=== PATIENT | female | born 1995 | race Caucasian/White ===

== ENCOUNTER 2017-04-19 20:00 | Inpatient (IN) | payer BC ==
[~2017-04-19] VITALS: Ht 160 cm; Wt 89.8 kg
[2017-04-19 20:49] VITALS: Ht 160 cm; Wt 89.8 kg
[2017-04-19] MEDS ORDERED: MISOPROSTOL 200 MCG TAB PR PRN (21:00)
[2017-04-19] MEDS ORDERED: LIDOCAINE 1% (MPF) 30 ML INJ INJ PRN (21:00)
[2017-04-19] MEDS ORDERED: IBUPROFEN 600 MG TAB PO PRN (21:00)
[2017-04-19] MEDS ORDERED: METHYLERGONOVINE 0.2 MG INJ IM PRN (21:00)
[2017-04-19] MEDS ORDERED: OXYTOCIN 30 UNITS/LR 500 ML IV PRN (21:00)
[2017-04-19] MEDS ORDERED: BUTORPHANOL 2 MG INJ IV PRN (21:00)
[2017-04-19] MEDS ORDERED: CARBOPROST 250 MCG INJ IM PRN (21:00)
[2017-04-19] MEDS ORDERED: OXYCODONE/ASPIRIN (4.88/325) TAB PO PRN (21:00)
[2017-04-19] MEDS ORDERED: OXYTOCIN 30 UNITS/LR 500 ML IV SCH (21:00)
[2017-04-19] MEDS ORDERED: MINERAL OIL LIGHT 10 ML VIAL TOP PRN (21:00)
[2017-04-19] MEDS: LACTATED RINGER'S 1,000 ML IV SCH (21:15)
[2017-04-19 21:25] LABS: BASOPHILS % 0.4 % (0.0-2.0); EOSINOPHILS # 0.1 10^3/ul (0.0-0.5); EOSINOPHILS % 1.2 % (0.0-7.0); HEMATOCRIT 33.6 % (37.0-47.0); HEMOGLOBIN 11.4 g/dl (12.0-16.0); LYMPHOCYTES # 2.4 10^3/ul (0.8-2.9); LYMPHOCYTES % 23.4 % (18.0-55.0); MEAN CORPUSCULAR HEMOGLOBIN 28.9 pg (29.0-33.0); MEAN CORPUSCULAR HGB CONC 33.9 g/dl (32.0-37.0); MEAN CORPUSCULAR VOLUME 85.3 fl (72.0-104.0); MEAN PLATELET VOLUME 10.9 fl (7.4-10.4); MONOCYTE # 0.8 10^3/ul (0.3-0.9); MONOCYTES % 7.9 % (0.0-13.0); NEUTROPHIL # 6.6 10^3/ul (1.6-7.5); NEUTROPHILS % 65.7 % (30.0-74.0); PLATELET COUNT 225 10^3/UL (140-415); RED BLOOD COUNT 3.94 10^6/ul (4.20-5.40); RED CELL DISTRIBUTION WIDTH 13.6 % (11.5-14.5); WHITE BLOOD COUNT 10.1 10^3/ul (4.8-10.8)
[2017-04-19 21:47] LABS: INR 0.9; PROTIME 12.2 Sec (11.9-14.9)
[2017-04-19 21:48] LABS: PARTIAL THROMBOPLASTIN TIME 25.4 Sec (25.0-35.0)
[2017-04-19 22:09] VITALS: BP 133/71; PULSE 133; RESP 17
[2017-04-19] MEDS ORDERED: DINOPROSTONE 10 MG VAG SUPP VAG ONE (22:30)
[2017-04-19] MEDS ORDERED: IRON1TAB78 PO (23:22)
[2017-04-19] MEDS ORDERED: PREN-93 PO (23:22)
[2017-04-20] MEDS: BUTORPHANOL 2 MG INJ IV PRN ×2 (02:05→15:35)
[2017-04-20] MEDS: LACTATED RINGER'S 1,000 ML IV SCH ×2 (02:30→11:29)
[2017-04-20] MEDS ORDERED: OXYTOCIN 30 UNITS/LR 500 ML IV SCH (16:30)
[2017-04-20] MEDS: OXYTOCIN 30 UNITS/LR 500 ML IV SCH ×2 (17:48→22:26)
--- NOTE | 2017-04-20 18:06 | HP ---
Date/Time of Note Date/Time of Note DATE: 04/20/17 TIME: 18:03 OB - History Hx of Present Free Text/Dictation 21y.o primigravida here for induction at 39w6d. VE /-3 cervidil induction course was unevenful Chief Complaint: for induction Estimated Due Date: Apr 20, 2017 : 1 Para: 0 Spontaneous : 0 Therapeutic : 0 Care: Good Care Ultrasounds: Normal mid trimester US Obstetrical Complications: None Medical Complications: None Past Family/Social History * Past Medical, Surgical, Family and Obstetric Histories reviewed from chart. Blood Type: B+ Rubella: immune RPR/VDRL: Negative GBS Status: Negative HBsAG: Negative OB Admission Exam Vital Signs Vital Signs Vital Signs Date Time Temp Pulse Resp B/P Pulse Ox O2 Delivery O2 Flow Rate FiO2 04/19/17 22:09 98.3 133 17 133/71 Room Air Physical Exam HEENT: WNL Heart: Rhythm Normal Lungs: Clear, Equal Abdomen: WNL Extremities: Normal Reflexes: Normal Cervical Dilatation: 1cm Effacement: 50% Station: -3 Membranes: Intact Amniotic Fluid: Unevaluable Heart Rate: 140's Accelerations: Accelerations Present Decelerations: No Decelerations Varibility: Moderate Contractions on Admission: 6-10 Minutes Apart Intensity: Mild Last 72 hours Lab Results CBC & BMP 04/19/17 21:10 OB Assessment/Plan Reason for admission: induction of labor Other Assessment: IUP 39w6d Plan: Induction Induction Method: per Misoprostol Protocol VIVIANA MAHAN MD Apr 20, 2017 18:06
--- NOTE | 2017-04-20 18:11 | LDN ---
Date/Time of Note Date/Time of Note DATE: 04/20/17 TIME: 18:07 Delivery Summary Weeks of Gestation 40w Placenta Delivered: Spontaneously Meconium: none Episiotomy: No Perineal laceration: 0 Laceration repair: cervical laceration 0ch Anesthesia type: None Estimated blood loss: 300 Sponge & Needle done & correct: Yes All needle counts correct: Yes Any foreign bodies felt in the: No Problems: Delivery Information Sex Infant Sex: female Apgars 1 Minute: 9 5 Minute: 9 10 Minute: 0 Suctioning Nose & mouth suctioned at ujan: Yes Delee suction performed: No Umbilical Cord Umbilical cord with: 3 Vessels Cord presentations: no nuchal cord Cord Blood was obtained: Yes Mother & Baby Disposition Disposition Mom & Baby to Maternity; Good: Yes Mom transferred to: Other Baby to NICU: No () VIVIANA MAHAN MD Apr 20, 2017 18:11
--- NOTE | 2017-04-20 18:41 | DELSUM ---
Delivery Summary A-C Datetime Report Generated by CPN: 04/20/2017 18:41 DELIVERY PERSONNEL Energy Control Officer: Kirsten Gonzalez MATERNAL INFORMATION Delivery Anesthesia: None Medications in Delivery: oxytocin 30units/lr Estimated Blood Loss (ml): 300 Placenta Cultured: No Maternal Complications: None LABOR SUMMARY EDC: 04/20/2017 00:00 No. Babies in Womb: 1 Attempted: No Labor Anesthesia: IV Sedation LABOR INFORMATION Reason for Induction: Other Reason for Induction- Other: TERM INDUCTION Onset of Labor: 04/20/2017 11:39 Complete Dilatation: 04/20/2017 16:30 Cervical Ripening Agents: Cervidil (Annotations: IN PLACE-PLACED 04/19 @ 2312) Cervical Ripening Agents: Cervidil Oxytocin: N/A Group B Beta Strep: Negative Antibiotics # of Doses: 0 Steroids Given: None Reason Steroids Not Administered: Not Applicable MEMBRANES Membranes Rupture Method: Spontaneous Rupture of Membranes: 04/20/2017 14:54 Length of Rupture (hr): 1.70 Amniotic Fluid Color: Clear Amniotic Fluid Color: Clear Amniotic Fluid Amount: Moderate Amniotic Fluid Amount: Moderate Amniotic Fluid Odor: None Amniotic Fluid Odor: None STAGES OF LABOR Stage 1 hr: 4 Stage 1 min: 51 Stage 2 hr: 0 Stage 2 min: 6 Stage 3 hr: 0 Stage 3 min: 9 Total Time in Labor hr: 5 Total Time in Labor min: 6 VAGINAL DELIVERY Episiotomy: None Laceration Type: Cervical Laceration Repair: Yes Initial Vag Sponge Count: 10 Final Vag Sponge Count: 10 Initial Vag Sharps Count: 2 Final Vag Sharps Count: 2 Sponge Count Correct: Yes; Vaginal Sweep Performed Sharps Count Correct: Yes BABY A INFORMATION Delivery Date/Time: 04/20/2017 16:36 Method of Delivery: Vaginal Born in Route : No : N/A Forceps: N/A Vacuum Extraction: N/A Shoulder Dystocia : No SHOULDER DYSTOCIA BABY A Infant Delivery Date/Time: 04/20/2017 16:36 PRESENTATION/POSITION BABY A Presentation: Cephalic Presentation: Cephalic Cephalic Presentation: Vertex Vertex Position: Left Occipital Anterior Breech Presentation: N/A PLACENTA INFORMATION BABY A Placenta Delivery Time : 04/20/2017 16:45 Placenta Method of Delivery: Spontaneous Placenta Status: Delivered SCORES BABY A Heart Rate 1 min: >100 bpm Resp Effort 1 min: Good Cry Reflex Irritability 1 min: Cough/Sneeze/Pulls Away Muscle Tone 1 min: Active Motion Color 1 min: Body [place], Extremit Blue Resuscitation Effort 1 min: Tactile Stimulation SCORE 1 MIN: 9 Heart Rate 5 min: >100 bpm Resp Effort 5 min: Good Cry Reflex Irritability 5 min: Cough/Sneeze/Pulls Away Muscle Tone 5 min: Active Motion Color 5 min: Body [place], Extremit Blue Resuscitation Effort 5 min: Tactile Stimulation SCORE 5 MIN: 9 INFANT INFORMATION BABY A Gestational Age at Delivery: 40.0 Gestational Status: Full Term- 39- 40.6 Weeks Outcome : Liveborn Condition : Stable Sex: Female IDENTIFICATION/MEDS BABY A ID Band Number: [id number] ID Band Location: Right Leg; Left Arm Sensor Applied: Yes Sensor Number: [id number] Sensor Location : Cord Clamp Vitamin K Given : Not Given Erythromycin Given: Not Given WEIGHT/LENGTH BABY A Infant Birthweight (gm): 3335 Infant Weight (lb): 7 Infant Weight (oz): 6 Length (in): 18.50 Infant Length (cm): 46.99 CORD INFORMATION BABY A No. Cord Vessels: 3 Nuchal Cord : Around Neck x1, Loose Cord Blood Taken: Yes Infant Suction: Mouth; Nose ASSESSMENT BABY A Infant Complications: Other Complications- Other: L FOOT turned inwards Physical Findings at Delivery: Within Normal Limits Respirations: Appears Normal Mold Holder/ALS Called : No Infant Care By: Raoul OVALLES Transferred To: Remains with Mother
[2017-04-20 19:30] VITALS: BP 106/66; PULSE 74; RESP 18
[2017-04-20 20:35] VITALS: BP 110/68; PULSE 60; RESP 20
[2017-04-20] MEDS ORDERED: ZOLPIDEM 5 MG TAB PO PRN (21:30)
[2017-04-20] MEDS ORDERED: LANOLIN 7 GM TUBE TOP PRN (21:30)
[2017-04-20] MEDS ORDERED: CARBOPROST 250 MCG INJ IM PRN (21:30)
[2017-04-20] MEDS ORDERED: BENZOCAINE 20% 56 ML SPRAY TOP PRN (21:30)
[2017-04-20] MEDS ORDERED: MISOPROSTOL 200 MCG TAB PR PRN (21:30)
[2017-04-20] MEDS ORDERED: OXYTOCIN 30 UNITS/LR 500 ML IV PRN (21:30)
[2017-04-20] MEDS ORDERED: WITCH HAZEL/GLYCERIN PAD PR PRN (21:30)
[2017-04-20] MEDS ORDERED: METHYLERGONOVINE 0.2 MG INJ IM PRN (21:30)
[2017-04-20] MEDS ORDERED: OXYCODONE/ASPIRIN (4.88/325) TAB PO PRN ×2 (21:30)
[2017-04-21] VITALS: BP 108/69; PULSE 64; RESP 18
[2017-04-21] MEDS: IBUPROFEN 600 MG TAB PO SCH ×4 (00:17→17:49)
--- NOTE | 2017-04-21 01:37 | PN ---
Date/Time of Note Date/Time of Note DATE: 04/21/17 TIME: 01:36 OB Subjective Subjective Subjective no c/o OB Objective Objective Objective vss afebrile fundus firm lochia min calf neg for tenderness OB Assessment/Plan Other Assessment: stable Other plan: d/s home in am VIVIANA MAHAN MD Apr 21, 2017 01:37
[2017-04-21 04:15] VITALS: BP 104/64; PULSE 96; RESP 18
[2017-04-21 08:20] VITALS: BP 112/64; PULSE 89; RESP 16
[2017-04-21] MEDS: SENNA/DOCUSATE NA (8.6MG/50MG) TAB PO SCH ×2 (08:43→21:02)
[2017-04-21 11:31] LABS: BASOPHILS % 0.3 % (0.0-2.0); EOSINOPHILS # 0.1 10^3/ul (0.0-0.5); EOSINOPHILS % 0.4 % (0.0-7.0); HEMATOCRIT 28.8 % (37.0-47.0); HEMOGLOBIN 9.5 g/dl (12.0-16.0); LYMPHOCYTES # 2.4 10^3/ul (0.8-2.9); MEAN CORPUSCULAR HEMOGLOBIN 28.8 pg (29.0-33.0); MEAN CORPUSCULAR VOLUME 87.3 fl (72.0-104.0); MEAN PLATELET VOLUME 11.5 fl (7.4-10.4); MONOCYTE # 0.8 10^3/ul (0.3-0.9); MONOCYTES % 5.2 % (0.0-13.0); NEUTROPHIL # 10.9 10^3/ul (1.6-7.5); NEUTROPHILS % 75.7 % (30.0-74.0); PLATELET COUNT 239 10^3/UL (140-415); RED CELL DISTRIBUTION WIDTH 14.2 % (11.5-14.5); WHITE BLOOD COUNT 14.3 10^3/ul (4.8-10.8)
[2017-04-21 12:15] VITALS: BP 110/71; PULSE 77; RESP 16
--- NOTE | 2017-04-21 15:13 | PN ---
Date/Time of Note Date/Time of Note DATE: 04/21/17 TIME: 15:11 OB Subjective Subjective Subjective no c/o OB Objective Objective Objective vss afebrile fundus firm lochia min calf neg for tenderness OB Assessment/Plan Other Assessment: stable post Other plan: d/s home in am VIVIANA MAHAN MD Apr 21, 2017 15:12
[2017-04-21 16:00] VITALS: BP_SYST 109; BP_SYST 130; BP_DIAS 69; BP_DIAS 71; PULSE 85; RESP 17; RESP 18
[2017-04-21] MEDS ORDERED: INFLUENZA VIRUS VACCINE 0.5 ML SYG IM* ONE (16:00)
[2017-04-21 19:45] VITALS: BP 116/67; PULSE 70; RESP 18
[2017-04-22] MEDS: IBUPROFEN 600 MG TAB PO SCH ×3 (00:13→11:35)
[2017-04-22 03:45] VITALS: BP 106/53; PULSE 64; RESP 18
--- NOTE | 2017-04-22 06:26 | PD.PPDC ---
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
--- NOTE | 2017-04-22 06:29 | DS ---
Date/Time of Note Date/Time of Note DATE: 04/22/17 TIME: 06:28 Obstetrical Discharge Record Final Diagnosis Final Diagnosis: Term delivered Vaginal Delivery Obstetrical Delivery: Spontaneous Complications Induction: No Rupture of Membranes: No Condition on Discharge Physical Assessment Last Vitals: vss afebrile Voiding: Yes Bowel Movement: Yes Breast: Soft, non-tender Fundus: Firm Calf Tenderness: No Patient Condition: Stable VIVIANA MAHAN MD Apr 22, 2017 06:29
[2017-04-22 08:00] VITALS: BP 102/54; PULSE 65; RESP 18
[2017-04-22] MEDS: SENNA/DOCUSATE NA (8.6MG/50MG) TAB PO SCH (08:31)
[2017-04-22] MEDS ORDERED: INFLUENZA VIRUS VACCINE 0.5 ML SYG IM* ONE (09:00)
[2017-04-22] MEDS ORDERED: DIPHTH/TET/ACEL PERTUSS (ADULT) 0.5 ML VIAL IM* ONE (09:00)
== END 2017-04-22 15:20 | disposition home or self-care (01) | DRG 775 ==
LOC: L-D 20:44 → PP1 04-20 19:42
PROVIDERS: ADMIT Obstetrics & Gynecology; ATTEND Obstetrics & Gynecology
PROC: 10E0XZZ Delivery of Products of Conception, External Approach (ICD-10-PCS; principal; 2017-04-20)
PROC: 3E033VJ Introduction of Other Hormone into Peripheral Vein, Percutaneous Approach (ICD-10-PCS; 2017-04-20)
DX: O48.0 Post-term pregnancy (principal); Z37.0 Single live birth; Z3A.40 40 weeks gestation of pregnancy
CPT/HCPCS: 85025; 85610; 85730; 86592; 86900; 86901; 87340; 90686; 90715; J0595; J2590; J7120